=== PATIENT | female | born 1970 ===

== ENCOUNTER 2018-04-18 10:04 | Outpatient (CLI) | payer OTHER ==
[2018-04-18] MEDS ORDERED: ISOVUE-370 76%-LOCM 1 ML ONE (14:53)
== END 2018-04-18 10:05 | disposition home or self-care (01) ==
LOC: BICCT 10:04
PROVIDERS: ATTEND Internal Medicine Gastroenterology
DX: K21.9 Gastro-esophageal reflux disease without esophagitis (principal); R10.84 Generalized abdominal pain; R19.4 Change in bowel habit; R50.9 Fever, unspecified; R11.2 Nausea with vomiting, unspecified; K83.8 Other specified diseases of biliary tract; K76.89 Other specified diseases of liver
CPT/HCPCS: 74177

== ENCOUNTER 2018-06-08 08:54 | Outpatient (CLI) | payer OTHER | END 2018-06-08 08:55 | disposition home or self-care (01) | LOC: BICMAMMO 08:54 | PROVIDERS: ATTEND Obstetrics & Gynecology | DX: Z12.31 Encounter for screening mammogram for malignant neoplasm of breast (principal); Z80.3 Family history of malignant neoplasm of breast | CPT/HCPCS: 77063; 77067 ==